=== PATIENT | male | born 1955 | race Caucasian/White ===

== ENCOUNTER 2025-01-03 08:18 | Outpatient (CLI) | payer MEDICARE, BC ==
--- NOTE | 2025-01-03 11:20 | RADIOLOGY REPORT ---
PROCEDURE: MR MRI LUMBAR SPINE INDICATION: LOW BACK PAIN,SPONDYLOSIS W/O MYELOPATHY OR RADICULOPATHY, LUMBAR REGION Exam Date: 01/03/2025 08:32 AM COMPARISON: None TECHNIQUE: MRI lumbar spine without intravenous contrast. FINDINGS: Dextroscoliosis. There are degenerative endplate changes including modic endplate changes with ante rior and lateral osteophytes throughout the lumbar spine. The visualized distal spinal cord and conus medullaris are within normal limits. The conus medullaris appears to terminate within normal limits . The visualized retroperitoneal and paraspinal soft tissues are unremarkable. The following axial levels are detailed below: T12-L1: Unremarkable. L1-L2: There is a mild circumferential disc bulge. No significant central canal or neuroforaminal s tenosis. L2-L3: There is a moderate circumferential disc bulge complicated by facet arthropathy associated w ith mild to moderate bilateral neuroforaminal stenosis. Central canal measures 9 mm. L3-L4: There is a severe circumferential disc bulge complicated by facet arthropathy narrowing the central canal to 5 mm with associated moderate to severe bilateral neuroforaminal stenosis. L4-L5: There is a severe circumferential disc bulge complicated by facet arthropathy narrowing the central canal to 7 mm with associated moderate to severe bilateral neuroforaminal stenosis. L5-S1: There is a moderate circumferential disc bulge complicated by facet arthropathy associated wi th mild to moderate left neuroforaminal stenosis. No significant central canal stenosis. IMPRESSION: 1. 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 Severe central canal stenosis L3-4 and L4-5. Neural foraminal stenosis as above. HS:Y
== END 2025-01-03 23:59 | disposition home or self-care (01) ==
LOC: MRI02 08:18
PROVIDERS: ATTEND Physical Medicine & Rehabilitation
DX: M51.17 Intervertebral disc disorders with radiculopathy, lumbosacral region (principal); M54.50 Low back pain, unspecified; M47.816 Spondylosis without myelopathy or radiculopathy, lumbar region; M47.27 Other spondylosis with radiculopathy, lumbosacral region; M48.07 Spinal stenosis, lumbosacral region
CPT/HCPCS: 72148

== ENCOUNTER 2025-02-23 11:20 | Outpatient (CLI) | payer MEDICARE, OTHER ==
--- NOTE | 2025-02-23 18:02 | RADIOLOGY REPORT ---
EXAM: MR MRI LOWER EXTREMITY LEFT INDICATION: EFFUSION, LEFT ANKLE TECHNIQUE: Multiplanar and multisequence MR imaging of the left ankle was performed in the absence of gadolinium contrast. COMPARISON: None FINDINGS: [MEDIAL ANKLE]: Intact posterior tibialis, flexor hallucis longus, and flexor digitorum tendons. Inta ct deltoid ligament. Intact spring ligament complex. [LOW LATERAL ANKLE]: Intermediate to high signal intensity of the anterior talofibular ligament. Cor relate for underlying tear. Posterior tibiofibular ligament and calcaneofibular ligament are intact. Trace fluid in the supramalleolar to malleolar segment of the peroneal tendon sheath. Correlate for t race tenosynovitis versus reactive. [HIGH LATERAL ANKLE]: Intact anterior and posterior inferior tibiofibular ligaments. [ANTERIOR ANKLE]: Intact anterior tibialis, extensor digitorum longus, and extensor hallucis longus t endons. [POSTERIOR ANKLE]: Fluid in the posterior subtalar recess communicating with the flexor hallucis long us tendon sheath. Normal sinus Tarsi. Normal plantar fascia. Normal Achilles tendon. No retrocalcane al bursitis. [MIDFOOT]: Normal. [BONES]: No acute fracture, osseous contusion, or aggressive osseous lesion. [MUSCLES]: Normal. [NEUROVASCULAR]: Normal tarsal tunnel [OTHER]: None IMPRESSION: 1. Intermediate to high signal intensity of the anterior talofibular ligament. Correlate for underly ing tear. 2. Trace fluid in the supramalleolar to malleolar segment of the peroneal tendon sheath. Correlate fo r trace tenosynovitis versus reactive. 3. Fluid in the posterior subtalar recess communicating with the flexor hallucis longus tendon sheath . Correlate for small posterior subtalar joint effusion.
== END 2025-02-23 23:59 | disposition home or self-care (01) ==
LOC: MRI02 11:20
PROVIDERS: ATTEND Podiatrist Foot & Ankle Surgery
DX: M25.472 Effusion, left ankle (principal); M25.672 Stiffness of left ankle, not elsewhere classified; M25.372 Other instability, left ankle; Q66.72 Congenital pes cavus, left foot; M62.81 Muscle weakness (generalized)
CPT/HCPCS: 73721